=== PATIENT | female | born 1960 | race Caucasian/White ===

== ENCOUNTER 2018-11-02 08:38 | Emergency (ER) | payer OTHER ==
[~2018-11-02] VITALS: Ht 157.5 cm; Wt 83.9 kg
[~2018-11-02 08:38] MED LIST: SYN.025 PO
[2018-11-02 08:44] VITALS: BP 138/93
--- NOTE | 2018-11-02 08:53 | NUR ---
PATIENT AMBULATED TO BED 3.
[2018-11-02] MEDS ORDERED: DEXAMETHASONE 10 MG/ML VIAL IM ONE (09:00)
[2018-11-02] MEDS ORDERED: KETOROLAC 60 MG/2 ML VIAL IM ONE (09:00)
--- NOTE | 2018-11-02 09:02 | NUR ---
PT TAKEN TO CT SCAN VIA AIYANA
--- NOTE | 2018-11-02 09:13 | NUR ---
pt back from ct scan.
[2018-11-02] MEDS ORDERED: MORPHINE SULFATE 4 MG/ML SYR IM ONE (10:35)
[2018-11-02 11:03] VITALS: BP 137/86
--- NOTE | 2018-11-02 11:03 | NUR ---
Patient discharged with v/s stable. Written and verbal after care instructions given and explained. Patient alert, oriented and verbalized understanding of instructions. Ambulatory with steady gait. All questions addressed prior to discharge. ID band removed. Patient advised to follow up with PMD. Rx of Vistaril and Baclofen given. Patient educated on indication of medication including possible reaction and side effects. Opportunity to ask questions provided and answered.
== END 2018-11-02 11:03 | disposition home or self-care (01) ==
LOC: MED 08:38
DX: M43.6 Torticollis (principal); I10 Essential (primary) hypertension; E03.9 Hypothyroidism, unspecified; F41.9 Anxiety disorder, unspecified; F32.9 Major depressive disorder, single episode, unspecified; Z79.899 Other long term (current) drug therapy
CPT/HCPCS: 70450; 72125; 96372; 99284; J1100; J1885; J2270

== ENCOUNTER 2019-10-26 19:18 | Emergency (ER) | payer OTHER ==
[~2019-10-26] VITALS: Ht 144.8 cm; Wt 82.6 kg
[2019-10-26 19:20] VITALS: BP 95/65
--- NOTE | 2019-10-26 19:25 | NUR ---
PT AMBULATED TO BED #5.
--- NOTE | 2019-10-26 19:30 | NUR ---
58 YO F BIB SELF FOR C/C OF 810 NON RADIATING EPIGASTRIC PAIN. PT STATES HER PAIN BEGAN YESTERDAY IN THE MORNING AND HAS BEEN UNRELIEVED WITH ADVIL. PT STATES SHE HAS HAD NAUSEA WITH VOMITING X1 YESTERDAY. LBM WAS TODAY, SOFT AND FORMED. PT DENIES DIARRHEA, AND DENIES APPETITE CHANGES. PT STATES THAT THE PAIN INCREASES UPON INSPIRATION. S1 S2 HEARD, LUNG SOUNDS CLEAR THROUGHOUT. BOWEL SOUNDS NORMOACTIVE THROUGHOUT. PT PLACED ON CARDIOVASCULAR LAB DIRECTOR. SIDE RAILS X1. BED LOCKED AND IN LOWEST POSITION. NKA MED HX: HTN, HYPERLIPID, THYROID (UNABLE TO IDENTIFY IF HYPO OR HYPER) RX: RX FOR THYROID, AND HYPERLIPID (UNABLE TO IDENTIFY MEDS)
--- NOTE | 2019-10-26 19:35 | NUR ---
Dr. Neves examining patient.
[2019-10-26] MEDS ORDERED: ONDANSETRON 4 MG/2 ML VIAL IVP ONE (19:40)
[2019-10-26] MEDS ORDERED: KETOROLAC 30 MG/ML VIAL IVP ONE (19:40)
[2019-10-26] MEDS ORDERED: NACL 0.9% 500 ML IV ONE (19:40)
[2019-10-26] MEDS ORDERED: LIDOCAINE VISCOUS 2% 20 ML UDC PO ONE (19:50)
[2019-10-26] MEDS ORDERED: DICYCLOMINE HCL LIQUID 10 MG/5 ML UDC PO ONE (19:50)
[2019-10-26] MEDS ORDERED: ALUMINUM HYD/MAG/SIMETHICONE 30 ML UDC PO ONE (19:50)
[2019-10-26 19:57] LABS: BASOPHILS % (AUTO) 0.4 % (0.0-2.0); EOSINOPHILS # (AUTO) 0.2 K/uL (0-0.4); EOSINOPHILS % (AUTO) 2.2 % (0.0-4.0); HEMATOCRIT 41.5 % (36-48); HEMOGLOBIN 13.7 g/dL (12.0-16.0); LYMPHOCYTES # (AUTO) 2.9 K/uL (2.5-16.5); LYMPHOCYTES % (AUTO) 35.4 % (20.5-51.1); MEAN CORPUSCULAR HEMOGLOBIN 29 pg (27-31); MEAN CORPUSCULAR HGB CONC 33 g/dL (33-37); MEAN CORPUSCULAR VOLUME 86.4 fL (80-94); MONOCYTES # (AUTO) 0.9 K/uL (0.8-1.0); MONOCYTES % (AUTO) 11.4 % (1.7-9.3); NEUTROPHILS # (AUTO) 4.1 K/uL (1.8-7.7); NEUTROPHILS % (AUTO) 50.6 % (42.2-75.2); PLATELET COUNT (AUTO) 202 K/uL (140-450); RED BLOOD CELL COUNT(AUTO) 4.81 MIL/uL (4.20-5.40); RED CELL DISTRIBUTION WIDTH 13.6 % (11.6-13.7); WHITE BLOOD COUNT (AUTO) 8.1 K/uL (4.8-10.8)
--- NOTE | 2019-10-26 20:14 | NUR ---
X-Ray at bedside.
[2019-10-26 20:15] LABS: ALBUMIN 3.9 g/dL (3.4-5.0); CARBON DIOXIDE 27.3 mmol/L (21-32); CREATININE 0.9 mg/dL (0.6-1.3); POTASSIUM 3.3 mmol/L (3.5-5.1); TOTAL BILIRUBIN 0.5 mg/dL (0.0-1.0)
--- NOTE | 2019-10-26 20:33 | NUR ---
PT STATES HER PAIN IS CURRENTLY 7/10 AFTER MECICATION ADMINSTRATION. PT DENIES WANTING MORE PAIN MEDICATION AT THIS TIME.
--- NOTE | 2019-10-26 20:47 | NUR ---
PT IS NOW REQUESTING MORE PAIN MEEICATION FOR UNRELIEVED 11/17 PAIN. KEVD MADE AWARE.
[2019-10-26] MEDS ORDERED: MORPHINE SULFATE 2 MG/ML SYR IVP ONE (20:50)
[2019-10-26 21:00] VITALS: BP 111/58
--- NOTE | 2019-10-26 21:00 | NUR ---
Patient discharged with v/s stable. Written and verbal after care instructions given and explained. Patient alert, oriented and verbalized understanding of instructions. Wheel Chair Assisted with to car. All questions addressed prior to discharge. ID band removed. Patient advised to follow up with PMD. Rx of PROTONIX, TRAMADOL given. Patient educated on indication of medication including possible reaction and side effects. Opportunity to ask questions provided and answered.
== END 2019-10-26 21:00 | disposition home or self-care (01) ==
LOC: MED 19:18
DX: K29.70 Gastritis, unspecified, without bleeding (principal); E03.9 Hypothyroidism, unspecified; I10 Essential (primary) hypertension; R07.9 Chest pain, unspecified; Z79.899 Other long term (current) drug therapy; Z83.42 Family history of familial hypercholesterolemia
CPT/HCPCS: 36415; 71045; 80053; 83690; 84484; 85025; 93005; 96374; 96375; 99285; J1885; J2270; J2405; J7030; Q0092

== ENCOUNTER 2020-06-12 14:49 | Inpatient (IN) | payer OTHER, SELFPAY ==
[~2020-06-12] VITALS: Ht 154.9 cm; Wt 85.8 kg
[2020-06-12 14:56] VITALS: BP 96/76
--- NOTE | 2020-06-12 15:06 | NUR ---
PATIENT AMBULATED TO BED 3.
--- NOTE | 2020-06-12 15:15 | NUR ---
Note undone in EDM - 06/12/20 at 1811 by FELIPE 59 Y/O F COMING IN FROM HOME WITH C/C PALPITATIONS. PT PRESENTS A&OX4 AND STATES THAT SHE FELT HER HEART BEATING FAST ON THE RIGHT SIDE OF HER CHEST 10 MINUTES PRIOR TO ER ARRIVAL. PT STATES ASSOCIATED HEADACHE. PT DENIES CHEST PAIN, SHORTNESS OF BREATH, ABDOMINAL PAIN, DIZZINESS, BLURRY VISION. PT PLACED ONTO REGIONAL FACILITIES SPECIALIST SHOWING TACHYCARDIA AT 138, BP 84/55, SP02 99% ON ROOM AIR, RR 18. BED LOCKED IN LOWEST POSITION, SIDE RAILS X 1. PMH: HYPERTHYROIDISM MEDS: UNABLE TO OBTAIN NKA
--- NOTE | 2020-06-12 15:15 | NUR ---
59 Y/O F COMING IN FROM HOME WITH C/C PALPITATIONS. PT PRESENTS A&OX4 AND STATES THAT SHE FELT HER HEART BEATING FAST ON THE RIGHT SIDE OF HER CHEST 10 MINUTES PRIOR TO ER ARRIVAL. PT STATES ASSOCIATED HEADACHE. PT DENIES CHEST PAIN, SHORTNESS OF BREATH, ABDOMINAL PAIN, DIZZINESS, BLURRY VISION. PT PLACED ONTO MOLD CONSTRUCTION SUPERVISOR SHOWING TACHYCARDIA AT 138, BP 84/55, SP02 99% ON ROOM AIR, RR 18. BED LOCKED IN LOWEST POSITION, SIDE RAILS X 1. IV ESTABLISHED WITH GOOD BLOOD RETURN. PMH: HYPOTHYROIDISM MEDS: UNABLE TO OBTAIN NKA
--- NOTE | 2020-06-12 16:30 | NUR ---
PT IN POSITION OF COMFORT, ALL PT NEEDS MET AT THIS TIME. CARDIAC MONTIOR IN PLACE, BED LOCKED IN LOWEST POSITION, SIDE RAILS X 1, CALL LIGHT IN REACH.
[2020-06-12] MEDS ORDERED: NACL 0.9% 1,000 ML IV SCH (16:40)
--- NOTE | 2020-06-12 16:47 | NUR ---
LAB AT BEDSIDE
--- NOTE | 2020-06-12 16:47 | NUR ---
XRAY AT BEDSIDE
--- NOTE | 2020-06-12 16:50 | NUR ---
DR. LOCKE EVALUATING PATIENT AT BEDSIDE
[2020-06-12 16:58] LABS: BASOPHILS % (AUTO) 0.2 % (0.0-2.0); EOSINOPHILS # (AUTO) 0.2 K/uL (0-0.4); EOSINOPHILS % (AUTO) 2.2 % (0.0-4.0); HEMOGLOBIN 12.2 g/dL (12.0-16.0); LYMPHOCYTES # (AUTO) 3.5 K/uL (2.5-16.5); LYMPHOCYTES % (AUTO) 44.7 % (20.5-51.1); MEAN CORPUSCULAR HEMOGLOBIN 29 pg (27-31); MEAN CORPUSCULAR HGB CONC 33 g/dL (33-37); MEAN CORPUSCULAR VOLUME 86.5 fL (80-94); MONOCYTES # (AUTO) 0.7 K/uL (0.8-1.0); MONOCYTES % (AUTO) 9.4 % (1.7-9.3); NEUTROPHILS # (AUTO) 3.4 K/uL (1.8-7.7); NEUTROPHILS % (AUTO) 43.5 % (42.2-75.2); PLATELET COUNT (AUTO) 197 K/uL (140-450); RED BLOOD CELL COUNT(AUTO) 4.28 MIL/uL (4.20-5.40); WHITE BLOOD COUNT (AUTO) 7.8 K/uL (4.8-10.8)
[2020-06-12 17:15] LABS: PROTHROMBIN TIME 9.9 secs (10.8-13.4)
[2020-06-12 17:16] LABS: ALBUMIN 3.7 g/dL (3.4-5.0); ANION GAP 12.6 (8-16); CARBON DIOXIDE 25.2 mmol/L (21-32); TOTAL BILIRUBIN 0.1 mg/dL (0.0-1.0)
[2020-06-12 17:26] LABS: POTASSIUM 2.8 mmol/L (3.5-5.1)
--- NOTE | 2020-06-12 17:28 | NUR ---
Potassium 2.8--critical value received from lab. Dr Perry made aware.
[2020-06-12] MEDS ORDERED: POTASSIUM CHLORIDE 10 MEQ TABER PO ONE (17:30)
[2020-06-12] MEDS ORDERED: ACETAMINOPHEN EXTRA STRENGTH 500 MG TAB PO ONE (17:30)
--- NOTE | 2020-06-12 17:30 | NUR ---
PT IN POSITION OF COMFORT, ALL PT NEEDS MET AT THIS TIME. EQUAL CHEST RISE AND FALL. RESPIRATIONS EVEN/UNLABORED. CARDIAC MONTIOR IN PLACE, BED LOCKED IN LOWEST POSITION, SIDE RAILS X 1, CALL LIGHT IN REACH.
[2020-06-12 17:55] LABS: FREE T4 (FREE THYROXINE) 0.71 ng/dL (0.76-1.46); MAGNESIUM 1.7 mg/dL (1.8-2.4); THYROID STIMULATING HORMONE 3.13 uIU/mL (0.34-3.74)
--- NOTE | 2020-06-12 18:16 | NUR ---
ALL PT NEEDS MET AT THIS TIME. CARDIAC MONTIOR IN PLACE. EQUAL CHEST RISE AND FALL, RESPIRATIONS EVEN/UNLABORED. BED LOCKED IN LOWEST POSITION, SIDE RAILS X 1, CALL LIGHT IN REACH.
--- NOTE | 2020-06-12 18:34 | NUR ---
DR. VIVAS PLACED ORDER FOR MAGNESIUM TO RUN 25ML OVER 1 HR AND DISCONTINUE AFTER 25ML. READ BACK AND CONFIRMED WITH .
[2020-06-12] MEDS ORDERED: MAG SULF 2000 MG/WATER PREMIX 50 ML IV ONE (18:40)
--- NOTE | 2020-06-12 19:36 | NUR ---
REPORT AND CONTINUITY OF CARE GIVEN TO EVA MOHR.
--- NOTE | 2020-06-12 19:36 | NUR ---
RECEIVED REPORT FROM PRETTY RN FOR CONTUATION OF CARE. PT IS SITTING UPRIGHT IN SEMI FOWLERS POSITION FOR COMFORT, PT IS ON HER PHONE, NO ACUTE DISTRES NOTED, BED IS LOCKED AND IN LOWEST POSITION, SIDE RAILSX1, PT HAS MAGNESIUM RUNNING AT 25ML/HR, PER NEPTALI CROWLEY ORDER IS ONLY FOR HALF DOSE AND ORDER IS TO ONLY RUN 25 ML NOT THE ENTIRE 50 ML BAG.
--- NOTE | 2020-06-12 20:03 | NUR ---
EKG PERFORMED AT BEDSIDE. EKG READS SINUS RHYTHM @ 85
--- NOTE | 2020-06-12 20:36 | NUR ---
PT IS SITTING UPRIGHT IN SEMI FOWLERS POSITION FOR COMFORT, NO ACUTE DISTRES NOTED, BED IS LOCKED AND IN LOWEST POSITION, SIDE RAILSX1, CALL LIGHT WITHIN REACH.
[2020-06-12] MEDS ORDERED: NACL 0.9% 1,000 ML IV ONE (21:00)
--- NOTE | 2020-06-12 21:00 | NUR ---
PTS BP IS 79/53, ERMD MADE AWARE, ERMD ORDERED NS BOLUS PRIOR TO DISCHARGE. PT IS NOT C/O OF NEW ONSET DIZZINESS OR LETHARGY
--- NOTE | 2020-06-12 21:10 | NUR ---
SPOKE WITH SON DELIA HARRIS WHO IS HERE IN THE LOBBY TO APPEALS BOARD REFEREE THE PT AND DRIVE HER HOME. SON UPDATED ON PTS STATUS AND NOTIFIED OF NEW ONSET HYPOTENSION- SON LEFT HIS NUMBER [phone]. WILL CALL HIM WHEN PT IS READY FOR DISCHARGE
--- NOTE | 2020-06-12 21:19 | NUR ---
PT IS SITTING UPRIGHT IN SEMI FOWLERS POSITION FOR COMFORT AND CONNECTED TO THE FREELANCE ART DIRECTOR, NO ACUTE DISTRES NOTED, NS IS RUNNING AT 1000ML/HR PER NEPTALI CROWLEY. BED IS LOCKED AND IN LOWEST POSITION, SIDE RAILSX1, CALL LIGHT WITHIN REACH.
--- NOTE | 2020-06-12 21:33 | NUR ---
NS BOLUS IS STILL INFUSING AT THIS TIME.
--- NOTE | 2020-06-12 22:20 | NUR ---
PT IS AMBULATED TO ED RESTROOM WITH STEADY GAIT
--- NOTE | 2020-06-12 22:30 | NUR ---
pt ambulated back to restroom with steady gait and reconnected to the cardiac cath rn.
--- NOTE | 2020-06-12 22:45 | NUR ---
PT IS RESTING IN AN UPRIGHT IN SEMI FOWLERS POSITION FOR COMFORT, VISIBLE RISE AND FALL OF CHEST NOTED. NO ACUTE DISTRES NOTED, BED IS LOCKED AND IN LOWEST POSITION, SIDE RAILSX1, CALL LIGHT WITHIN REACH. NO NEW ORDERS AT THIS TIME.
--- NOTE | 2020-06-12 23:09 | NUR ---
PTS BP OF 86/52, NEPTALI CROWLEY MADE AWARE, DISCUSSED ADMISSION WITH PT FOR HYPOTENSION
--- NOTE | 2020-06-12 23:20 | NUR ---
PTS SON NOTIFIED OF POSSIBLE ADMISSION AND UPDATE IN PT STATUS AT THIS TIME.
--- NOTE | 2020-06-12 23:53 | NUR ---
pt taken to ct at this time
[2020-06-13] MEDS ORDERED: LORazepam 1 MG TAB PO PRN (00:05)
[2020-06-13] MEDS ORDERED: POTASSIUM CHLORIDE 10 MEQ TABER PO PRN (00:05)
[2020-06-13] MEDS ORDERED: HYDROcodone/APAP 5/325 MG 1 TAB TAB PO PRN (00:05)
[2020-06-13] MEDS ORDERED: KCL 20 MEQ/WATER INJ PREMIX 200 ML IV PRN (00:05)
[2020-06-13] MEDS ORDERED: MAG SULF 2000 MG/WATER PREMIX 50 ML IV PRN (00:05)
[2020-06-13] MEDS ORDERED: ONDANSETRON 4 MG/2 ML VIAL IVP PRN (00:05)
[2020-06-13] MEDS ORDERED: ACETAMINOPHEN 325 MG TAB PO PRN (00:05)
[2020-06-13] MEDS ORDERED: NACL 0.9% 1,000 ML IV ONE (00:05)
[2020-06-13] MEDS ORDERED: MAGNESIUM OXIDE 400 MG TAB PO PRN (00:05)
--- NOTE | 2020-06-13 00:30 | NUR ---
PT IS ASLEEP IN UPRIGHT IN SEMI FOWLERS POSITION FOR COMFORT, VISIBLE RISE AND FALL OF CHEST NOTED AND CONNECTED TO THE MANAGER PLUMBING, NO ACUTE DISTRES NOTED. BED IS LOCKED AND IN LOWEST POSITION, SIDE RAILSX1, CALL LIGHT WITHIN REACH.
--- NOTE | 2020-06-13 00:30 | NUR ---
Gurjit portillo in [facility] - 06/13/20 at 0033 by BETOReese CALLED AND GAVE REPORT TO EVA ORLANDO FOR TRANSFER OF CARE IN TELEMETRY
--- NOTE | 2020-06-13 01:30 | NUR ---
PT IS SLEEP IN LOW FOWLERS POSITION FOR COMFORT, VISIBLE RISE AND FALL OF CHEST NOTED AND CONNECTED TO THE PAINT MIXER HAND, NO ACUTE DISTRES NOTED. BED IS LOCKED AND IN LOWEST POSITION, SIDE RAILSX1, CALL LIGHT WITHIN REACH.
--- NOTE | 2020-06-13 02:30 | NUR ---
PT IS SLEEP IN LOW FOWLERS POSITION FOR COMFORT, VISIBLE RISE AND FALL OF CHEST NOTED AND CONNECTED TO THE ARCHITECTURAL ADMINISTRATIVE ASSISTANT, NO ACUTE DISTRES NOTED. BED IS LOCKED AND IN LOWEST POSITION, SIDE RAILSX1, CALL LIGHT WITHIN REACH. NO NEW ORDERS AT THIS TIME.
--- NOTE | 2020-06-13 03:30 | NUR ---
PT IS SLEEPING IN LOW FOWLERS POSITION FOR COMFORT, VISIBLE RISE AND FALL OF CHEST NOTED AND CONNECTED TO THE WEAVER TIRE CORD, NO ACUTE DISTRES NOTED. BED IS LOCKED AND IN LOWEST POSITION, SIDE RAILSX1, CALL LIGHT WITHIN REACH. NO NEW ORDERS AT THIS TIME.
--- NOTE | 2020-06-13 04:30 | NUR ---
PT IS SLEEPING IN LOW FOWLERS POSITION FOR COMFORT, VISIBLE RISE AND FALL OF CHEST NOTED AND CONNECTED TO THE MECHANIST, NO ACUTE DISTRES NOTED. BED IS LOCKED AND IN LOWEST POSITION, SIDE RAILSX1, CALL LIGHT WITHIN REACH. NO NEW ORDERS AT THIS TIME.
--- NOTE | 2020-06-13 05:30 | NUR ---
PT IS SLEEPING IN LOW FOWLERS POSITION FOR COMFORT, VISIBLE RISE AND FALL OF CHEST NOTED AND CONNECTED TO THE GEOSPATIAL EXTRACTOR ANALYSIS, NO ACUTE DISTRES NOTED. BED IS LOCKED AND IN LOWEST POSITION, SIDE RAILSX1, CALL LIGHT WITHIN REACH. NO NEW ORDERS AT THIS TIME.
--- NOTE | 2020-06-13 05:55 | NUR ---
CALLED AND GAVE REPORT TO EVA MAN FOR TRANSFER OF CARE AT THIS TIME.
--- NOTE | 2020-06-13 06:10 | NUR ---
Patient will be admitted to care of . Admited to TELEMETRY. Will go to room 133. Belongings list completed. Report to EVA MAN.
[2020-06-13 06:15] VITALS: BP 128/68
--- NOTE | 2020-06-13 06:15 | NUR ---
RECEIVED PATIENT FROM ER VIA [facility] FOR CONTINUITY OF CARE. PATIENT IS ABLE TO AMBULATE FROM [facility] TO BED. AAOX4. RESPIRATIONS EVEN, UNLABORED. NO S/S RESPIRATORY DISTRESS. NO C/O PAIN. NO S/S ACUTE DISTRESS. SKIN ASSESSMENT COMPLETE. SKIN INTACT. IV SITE TO RIGHT AC 20G PATENT/INTACT, INFUSING FLUIDS WELL. ABDOMEN SOFT, NONTENDER, NONDISTENDED. BOWEL SOUNDS ACTIVE X4 QUADRANTS. PATIENT IS CONTINENT OF B/B. MRSA SCREEN COMPLETED. PATIENT ORIENTED TO ROOM/STAFF AND CALL LIGHT. PLAN OF CARE DISCUSSED. ISOLATION PRECAUTIONS OBSERVED.
[2020-06-13] MEDS: methylPREDNISolone SS 40 MG/ML VIAL IVP SCH ×4 (06:25→23:38)
[2020-06-13] MEDS: LEVOTHYROXINE 0.025 MG TAB PO SCH (06:31)
[2020-06-13] MEDS ORDERED: MIDODRINE 5 MG TAB PO SCH (07:00)
--- NOTE | 2020-06-13 07:25 | NUR ---
ENDORSED PATIENT TO AM SHIFT NURSE FOR CONTINUITY OF CARE.
--- NOTE | 2020-06-13 07:40 | NUR ---
RECEIVED PT FROM COMPOUNDING TECHNICIAN NURSE, PT IS AWAKE AND ALERT IN BED, ON ROOM AIR, IV NOTED TO RAC RUNNING NS @ 75 ML/HR, SAFETY AND FALL PRECAUTIONS IN PLACE, WILL CONTINUE TO MONITOR.
[2020-06-13] MEDS: DOCUSATE SODIUM 100 MG GELCAP PO SCH (09:05)
[2020-06-13] MEDS: MIDODRINE 5 MG TAB PO SCH ×3 (09:05→18:15)
--- NOTE | 2020-06-13 09:16 | NUR ---
SCHEDULED MEDICATIONS ADMINISTERED, NIGHT NURSE STATED MIDODRINE WAS HELD, TEOFILO BP 106/70, MIDODRINE ADMINISTERED AND SCHEDULED COLACE ADMINISTERED, PT EDUCATION PROVIDED, PT VERBALIZED UNDERSTANDING,WILL CONTINUE TO MONITOR.
[2020-06-13 12:00] VITALS: BP 94/57
--- NOTE | 2020-06-13 12:06 | NUR ---
P.T. NOTES P.T. EVAL COMPLETED; REFER TO EVAL FOR DETAILS; ENDORSED TO NURSING.
--- NOTE | 2020-06-13 13:09 | NUR ---
SCHEDULED MEDICATION ADMINISTERED, EDUCATION PROVIDED, BP 118/83, HR 89, PT VERBALIZED UNDERSTANDING, WILL CONTINUE TO MONITOR.
--- NOTE | 2020-06-13 15:21 | NUR ---
SOCIAL WORK NOTE: Patient's Orientation Unable To Assess Information Provided By DELIA HARRIS - SON Comments SW WAS UNABLE TO MEET PATIENT AT BEDSIDE. SW COMPLETED ASSESSMENT WITH PATIENT'S SON. Solution Analyst, Realtionship and Phone Number DELIA GASPAR [phone] Healthcare Power of Regional Safety Manager No Does Patient Have a POLST No Identifying Problems No Social Work Triggers Is A Social Work Consult Needed No Mandate Report Filed No Explanation Of Identifying Problems PATIENT IS A 59-YEAR-OLD FEMALE ADMITTED FOR HYPOTENSION WITH WEAKNESS. PATIENT HAS NO REPORTED PMHX. Admitted From Home Pre-Admission Level Of Functioning Status Independent/Ambulatory Prior Resources/Services Used In Last 12 Months No Prior Resources Used Prior DME No Prior DME Used Dialysis Comments N/A Living Situation Lives With Family House Patient Had Caregiver No Home Support No Caregiver Issues Financial Issues No Known Financial Issue Referral To The Financial Counselor Needed No Factors/Needs No D/C Needs Identified Pt/Rep Participated In Discharge Plan Yes Patient/Family Agress With Discharge Plan Yes Discharge Plan Comments TENTATIVE DISCHARGE PLAN IS FOR PATIENT TO RETURN HOME. DC Plan Status Initiated
[2020-06-13 16:00] VITALS: BP 101/64
--- NOTE | 2020-06-13 17:31 | NUR ---
SCHEDULED MEDICATION ADMINISTERED, RECHECKED BP, 101/64, EDUCATION PROVIDED, PT VERBALIZED UNDERSTANDING, WILL CONTINUE TO MONITOR.
[2020-06-13 17:58] LABS: BASOPHILS % (AUTO) 0.1 % (0.0-2.0); HEMATOCRIT 40.2 % (36-48); HEMOGLOBIN 13.5 g/dL (12.0-16.0); LYMPHOCYTES # (AUTO) 0.9 K/uL (2.5-16.5); MEAN CORPUSCULAR HEMOGLOBIN 29 pg (27-31); MEAN CORPUSCULAR HGB CONC 34 g/dL (33-37); MEAN CORPUSCULAR VOLUME 86.2 fL (80-94); MONOCYTES # (AUTO) 0.1 K/uL (0.8-1.0); MONOCYTES % (AUTO) 1.4 % (1.7-9.3); NEUTROPHILS # (AUTO) 5.9 K/uL (1.8-7.7); NEUTROPHILS % (AUTO) 85.5 % (42.2-75.2); PLATELET COUNT (AUTO) 216 K/uL (140-450); RED BLOOD CELL COUNT(AUTO) 4.66 MIL/uL (4.20-5.40); RED CELL DISTRIBUTION WIDTH 13.9 % (11.6-13.7); WHITE BLOOD COUNT (AUTO) 6.9 K/uL (4.8-10.8)
[2020-06-13 18:19] LABS: ALBUMIN 3.7 g/dL (3.4-5.0); ANION GAP 14.4 (8-16); CARBON DIOXIDE 24.7 mmol/L (21-32); POTASSIUM 4.1 mmol/L (3.5-5.1); TOTAL BILIRUBIN 0.3 mg/dL (0.0-1.0)
--- NOTE | 2020-06-13 18:33 | NUR ---
SCHEDULED MEDICATION ADMINISTERED WITH MAGNESIUM FOR 1.7 MG LEVEL, EDUCATION PROVIDED, PT VERBALIZED UNDERSTANDING, WILL CONTINUE TO MONITOR.
--- NOTE | 2020-06-13 19:25 | NUR ---
PT ENDORSED TO SURVEILLANCE INSPECTOR NURSE FOR CONTINUITY OF CARE.
--- NOTE | 2020-06-13 19:25 | NUR ---
RECEIVED BEDSIDE REPORT FROM DAY SHIFT NURSE. PATIENT IS AWAKE, ALERT, AND COOPERATIVE. RESPIRATION EVEN UNLABORED ON ROOM AIR. NO DISTRESS NOTED. SKIN IS WARM AND DRY. IV PATENT AND INTACT. PLAN OF CARE WAS DISCUSSED. ALL SAFETY MEASURES IN PLACE. BED IS AT LOW POSITION. CALL LIGHT WITHIN REACH. WILL CONTINUE TO MONITOR
[2020-06-13 20:00] VITALS: BP 107/51
--- NOTE | 2020-06-13 21:00 | NUR ---
MADE ROUNDS. PATIENT SLEEPING RESPIRATION EVEN UNLABORED ON ROOM AIR. NO DISTRESS NOTED. WILL CONTINUE TO MONITOR
--- NOTE | 2020-06-13 23:40 | NUR ---
ALL SCHEDULED MEDS GIVEN PER ORDER. NO ASE NOTED. WILL CONTINUE TO MONITOR
[2020-06-14] VITALS: BP 97/49
--- NOTE | 2020-06-14 02:20 | NUR ---
ENDORSED PATIENT TO DEVON RN FOR CONTINUITY OF CARE
--- NOTE | 2020-06-14 03:35 | NUR ---
Patient received at 0210 from fellow nurse. Patient is currently sleeping with 0 s/s of distress and breathing is even and unlabored. Call light is within reach. Will continue to monitor throughout the shift.
[2020-06-14 04:00] VITALS: BP 104/62
[2020-06-14] MEDS: methylPREDNISolone SS 40 MG/ML VIAL IVP SCH ×2 (05:34→12:18)
[2020-06-14] MEDS: MIDODRINE 5 MG TAB PO SCH ×2 (05:34→12:31)
[2020-06-14] MEDS: LEVOTHYROXINE 0.025 MG TAB PO SCH (05:35)
--- NOTE | 2020-06-14 06:28 | NUR ---
Patient is alert and able to verbalize needs and has 0 s/s of distress at this time, breathing is equal and unlabored. Call light is within reach. All scheduled medications and schedule interventions were completed through the shift. Will endorse further care to am shift nurse for continuity of care.
--- NOTE | 2020-06-14 07:37 | NUR ---
RECEIVED REPORT FROM GRAPHICS SPECIALIST NURSE FOR CONTINUITY OF CARE. PATIENT IN STABLE CONDITION.
[2020-06-14 08:00] VITALS: BP 135/85
[2020-06-14] MEDS: DOCUSATE SODIUM 100 MG GELCAP PO SCH (08:43)
--- NOTE | 2020-06-14 08:57 | NUR ---
SCHEDULED MEDICATIONS DUE GIVEN. WILL CONTINUE TO MONITOR.
--- NOTE | 2020-06-14 09:05 | NUR ---
PATIENT HAS BEEN SCREENED AND CATEGORIZED LOW NUTRITION RISK. PATIENT WILL BE SEEN WITHIN 7 DAYS OF ADMISSION. 06/19/[address]
[2020-06-14 09:15] LABS: BASOPHILS % (AUTO) 0.1 % (0.0-2.0); HEMATOCRIT 39.8 % (36-48); HEMOGLOBIN 13.2 g/dL (12.0-16.0); LYMPHOCYTES # (AUTO) 1.2 K/uL (2.5-16.5); LYMPHOCYTES % (AUTO) 9.9 % (20.5-51.1); MEAN CORPUSCULAR HEMOGLOBIN 29 pg (27-31); MEAN CORPUSCULAR HGB CONC 33 g/dL (33-37); MEAN CORPUSCULAR VOLUME 86.8 fL (80-94); MONOCYTES # (AUTO) 0.5 K/uL (0.8-1.0); MONOCYTES % (AUTO) 4.5 % (1.7-9.3); NEUTROPHILS # (AUTO) 10.1 K/uL (1.8-7.7); NEUTROPHILS % (AUTO) 85.5 % (42.2-75.2); PLATELET COUNT (AUTO) 204 K/uL (140-450); RED BLOOD CELL COUNT(AUTO) 4.59 MIL/uL (4.20-5.40); RED CELL DISTRIBUTION WIDTH 14.1 % (11.6-13.7); WHITE BLOOD COUNT (AUTO) 11.8 K/uL (4.8-10.8)
[2020-06-14 09:48] LABS: ALBUMIN 3.7 g/dL (3.4-5.0); ANION GAP 13.2 (8-16); CHOL/HDL RATIO 4.5 (1-4.5); CREATININE 0.8 mg/dL (0.6-1.3); MAGNESIUM 2.1 mg/dL (1.8-2.4); PHOSPHORUS 3.3 mg/dL (2.5-4.9); POTASSIUM 4.2 mmol/L (3.5-5.1); TOTAL BILIRUBIN 0.3 mg/dL (0.0-1.0)
[2020-06-14] MEDS ORDERED: PRO5 PO (10:52)
[2020-06-14 12:00] VITALS: BP 115/74
--- NOTE | 2020-06-14 12:31 | NUR ---
SCHEDULED MEDICATIONS DUE GIVEN. WILL CONTINUE TO MONITOR.
--- NOTE | 2020-06-14 14:23 | NUR ---
DISCHARGE INSTRUCTIONS PROVIDED TO PATIENT WITH SON ON PHONE TRANSLATING IN [facility] PATIENT PREFERS. INSTRUCTIONS ON FOLLOW-UP WITH PCP IN 1 WEEK, NEW/CHANGED MEDICATION REGIMEN AND SIDE EFFECTS, DIET REGIMEN, AND DISEASE MANAGEMENT/PROCESS OF HYPOTENSION. ANSWERED ALL OF PATIENT'S QUESTIONS REGARDING DISCHARGE. IV SITE REMOVED WITH MINIMAL BLOOD AND LUMEN COMPLETELY INTACT. ID BANDS REMOVED. AWAITING FOR PATIENT'S SON TO ARRIVE TO TAKE HER HOME.
--- NOTE | 2020-06-14 14:35 | NUR ---
PATIENT'S SON AT LOBBY TO TAKE PATIENT HOME. ESCORTED PATIENT DOWN TO [facility] VIA WHEELCHAIR. PATIENT DISCHARGED AT THIS TIME IN STABLE CONDITION.
== END 2020-06-14 14:35 | disposition home or self-care (01) | DRG 207 ==
LOC: MED 14:49 → MTU 06-13 00:04 → MMU 06-13 05:44
PROVIDERS: ADMIT Internal Medicine; ATTEND Internal Medicine
DX: I95.9 Hypotension, unspecified (principal); E83.42 Hypomagnesemia; I11.9 Hypertensive heart disease without heart failure; Z20.822 Contact with and (suspected) exposure to COVID-19; E03.9 Hypothyroidism, unspecified; E78.00 Pure hypercholesterolemia, unspecified; E87.6 Hypokalemia; Z79.899 Other long term (current) drug therapy; Z86.718 Personal history of other venous thrombosis and embolism; Z86.711 Personal history of pulmonary embolism; R00.0 Tachycardia, unspecified; E78.5 Hyperlipidemia, unspecified
CPT/HCPCS: 36415; 71045; 80053; 83036; 83735; 83880; 84100; 84439; 84443; 84484; 85025; 85610; 85730; 86140; 87081; 93005; 96361; 96365; 99285; J2920; J3475; J7030; U0003

== ENCOUNTER 2020-12-02 21:53 | Emergency (ER) | payer OTHER, SELFPAY ==
[~2020-12-02] VITALS: Ht 162.6 cm; Wt 81.6 kg
[~2020-12-02 21:53] MED LIST changes: +PRO5 PO
[2020-12-02 22:00] VITALS: BP 122/56
--- NOTE | 2020-12-02 22:00 | NUR ---
TO BED AMBULATORY
--- NOTE | 2020-12-02 22:16 | NUR ---
patient pain in the RLQ which radiates to the back. 02/17 pain. patient was here in march 2020 for appendicitis but never went through with the operation since she wasnt in any pain. AAOX4. [facility] denies nka
[2020-12-02] MEDS ORDERED: NACL 0.9% 1,000 ML IV ONE ×2 (22:40)
[2020-12-02] MEDS ORDERED: PIPERACILLIN/TAZOBACTAM 3.375 GM in DEXTROSE 5% 50 ML IV ONE (22:40)
[2020-12-02] MEDS ORDERED: MORPHINE SULFATE 4 MG/ML SYR IVP ONE (22:40)
[2020-12-02] MEDS ORDERED: ONDANSETRON 4 MG/2 ML VIAL IVP ONE (22:40)
[2020-12-02] MEDS ORDERED: PIPERACILLIN/TAZOBACTAM 3.375 GM VIAL IV ONE (23:04)
[2020-12-02 23:11] LABS: BASOPHILS % (AUTO) 0.5 % (0.0-2.0); EOSINOPHILS # (AUTO) 0.2 K/uL (0-0.4); EOSINOPHILS % (AUTO) 3.5 % (0.0-4.0); HEMATOCRIT 38.1 % (36-48); HEMOGLOBIN 12.7 g/dL (12.0-16.0); LYMPHOCYTES # (AUTO) 2.7 K/uL (2.5-16.5); LYMPHOCYTES % (AUTO) 41.9 % (20.5-51.1); MEAN CORPUSCULAR HEMOGLOBIN 29 pg (27-31); MEAN CORPUSCULAR HGB CONC 33 g/dL (33-37); MEAN CORPUSCULAR VOLUME 87.3 fL (80-94); MONOCYTES # (AUTO) 0.7 K/uL (0.8-1.0); MONOCYTES % (AUTO) 11.1 % (1.7-9.3); NEUTROPHILS # (AUTO) 2.7 K/uL (1.8-7.7); PLATELET COUNT (AUTO) 192 K/uL (140-450); RED BLOOD CELL COUNT(AUTO) 4.37 MIL/uL (4.20-5.40); RED CELL DISTRIBUTION WIDTH 13.5 % (11.6-13.7); WHITE BLOOD COUNT (AUTO) 6.3 K/uL (4.8-10.8)
--- NOTE | 2020-12-02 23:22 | NUR ---
Dr. Hodges examining patient.
--- NOTE | 2020-12-02 23:24 | NUR ---
patient to CT
[2020-12-02 23:28] LABS: ALBUMIN 3.8 g/dL (3.4-5.0); ANION GAP 9.3 (8-16); CARBON DIOXIDE 29.8 mmol/L (21-32); CREATININE 0.8 mg/dL (0.6-1.3); POTASSIUM 4.1 mmol/L (3.5-5.1); TOTAL BILIRUBIN 0.3 mg/dL (0.0-1.0)
--- NOTE | 2020-12-02 23:45 | NUR ---
patient placed back on the monitors. Will continue with safety measures and monitoring.
[2020-12-03] MEDS ORDERED: AMOX-1000 PO (01:34)
[2020-12-03] MEDS ORDERED: IBUP-2213 PO (01:34)
--- NOTE | 2020-12-03 01:40 | NUR ---
IV removed, catheter intact and site benign. Applied folded 4x4 gauze and tape to stop bleeding.
[2020-12-03 01:51] VITALS: BP 96/71
--- NOTE | 2020-12-03 01:51 | NUR ---
Patient discharged with v/s stable. Written and verbal after care instructions given and explained. Patient alert, oriented and verbalized understanding of instructions. Ambulatory with steady gait. All questions addressed prior to discharge. ID band removed. Patient advised to follow up with PMD. Rx of augmentin 875-125, and ibuprofen given. Patient educated on indication of medication including possible reaction and side effects. Opportunity to ask questions provided and answered.
--- NOTE | 2020-12-05 20:35 | NUR ---
LATE NOTE- 0.9% NS BOLUS DISCONTINUED AT 0145
== END 2020-12-03 01:51 | disposition home or self-care (01) ==
LOC: MED 21:53
DX: K65.4 Sclerosing mesenteritis (principal); E11.9 Type 2 diabetes mellitus without complications; K21.9 Gastro-esophageal reflux disease without esophagitis; E03.9 Hypothyroidism, unspecified; Z98.890 Other specified postprocedural states; Z79.899 Other long term (current) drug therapy
CPT/HCPCS: 36415; 74176; 80053; 81002; 83605; 85025; 87040; 96361; 96365; 96375; 99284; J2270; J2405; J2543; J7030

== ENCOUNTER 2021-03-24 17:23 | Emergency (ER) | payer OTHER, SELFPAY ==
[~2021-03-24] VITALS: Ht 152.4 cm; Wt 82.6 kg
[~2021-03-24 17:23] MED LIST changes: +AMOX-1000 PO; +IBUP-2213 PO
[2021-03-24 17:48] VITALS: BP 124/70
--- NOTE | 2021-03-24 17:53 | NUR ---
MAGALYS. HANDED ON URINE CUP.
[2021-03-24 19:48] LABS: BASOPHILS % (AUTO) 0.4 % (0.0-2.0); EOSINOPHILS # (AUTO) 0.2 K/uL (0-0.4); EOSINOPHILS % (AUTO) 3.3 % (0.0-4.0); HEMATOCRIT 40.1 % (36-48); HEMOGLOBIN 13.4 g/dL (12.0-16.0); LYMPHOCYTES # (AUTO) 2.4 K/uL (2.5-16.5); LYMPHOCYTES % (AUTO) 36.5 % (20.5-51.1); MEAN CORPUSCULAR HEMOGLOBIN 29 pg (27-31); MEAN CORPUSCULAR HGB CONC 33 g/dL (33-37); MEAN CORPUSCULAR VOLUME 86.3 fL (80-94); MONOCYTES # (AUTO) 0.8 K/uL (0.8-1.0); MONOCYTES % (AUTO) 12.7 % (1.7-9.3); NEUTROPHILS # (AUTO) 3.1 K/uL (1.8-7.7); NEUTROPHILS % (AUTO) 47.1 % (42.2-75.2); PLATELET COUNT (AUTO) 262 K/uL (140-450); RED BLOOD CELL COUNT(AUTO) 4.64 MIL/uL (4.20-5.40); RED CELL DISTRIBUTION WIDTH 13.2 % (11.6-13.7); WHITE BLOOD COUNT (AUTO) 6.6 K/uL (4.8-10.8)
[2021-03-24 19:53] LABS: APPEARANCE,URINE CLEAR (CLEAR); BILIRUBIN,URINE NEGATIVE (NEGATIVE); BLOOD, URINE TRACE-I (NEGATIVE); COLOR,URINE YELLOW (YELLOW); LEUKOCYTE ESTERASE ,URINE NEGATIVE (NEGATIVE); NITRITE, URINE NEGATIVE (NEGATIVE); UGLUCOSE NEGATIVE (NEGATIVE)
[2021-03-24 20:03] LABS: RBC,URINE 0-5 /HPF (0-5); WBC,URINE NONE SEEN /HPF (0-5)
[2021-03-24 20:04] LABS: ANION GAP 11.5 (8-16); CARBON DIOXIDE 31.8 mmol/L (21-32); CREATININE 0.9 mg/dL (0.6-1.3); POTASSIUM 4.3 mmol/L (3.5-5.1); TOTAL BILIRUBIN 0.3 mg/dL (0.0-1.0)
[2021-03-24] MEDS ORDERED: KETOROLAC 30 MG/ML VIAL IM SCH (20:50)
--- NOTE | 2021-03-24 20:56 | NUR ---
PT TAKEN TO ADAM
--- NOTE | 2021-03-24 21:15 | NUR ---
PT TAKEN TO RADIOLOGY
--- NOTE | 2021-03-24 21:24 | NUR ---
PT RETURN FROM RAD
[2021-03-24] MEDS ORDERED: MAGN1.7529 PO (23:05)
[2021-03-24 23:37] VITALS: BP 124/70
--- NOTE | 2021-03-24 23:38 | NUR ---
Patient discharged with v/s stable. Written and verbal after care instructions given and explained. Patient verbalized understanding. Ambulatory with steady gait. All questions addressed prior to discharge. Advised to follow up with PMD.
== END 2021-03-24 23:38 | disposition home or self-care (01) ==
LOC: MED 17:23
DX: K59.00 Constipation, unspecified (principal); E11.9 Type 2 diabetes mellitus without complications; I10 Essential (primary) hypertension; E03.9 Hypothyroidism, unspecified; Z79.899 Other long term (current) drug therapy; Z79.1 Long term (current) use of non-steroidal anti-inflammatories (NSAID); Z79.2 Long term (current) use of antibiotics
CPT/HCPCS: 36415; 74018; 80053; 81001; 81025; 85025; 93005; 99285

== ENCOUNTER 2022-08-26 18:29 | Emergency (ER) | payer OTHER ==
[~2022-08-26] VITALS: Ht 157.5 cm; Wt 83.9 kg
[~2022-08-26 18:29] MED LIST changes: +MAGN296S70 PO
[2022-08-26 18:34] VITALS: BP 114/56
--- NOTE | 2022-08-26 19:45 | NUR ---
PT AMBULATED TO BED #5
--- NOTE | 2022-08-26 20:00 | NUR ---
ER Physician speaking with patient.
--- NOTE | 2022-08-26 20:00 | NUR ---
Patient resting in bed, A/Ox4, chest rise and fall symmetrical, no c/o pain or s/s of distress, on monitor Addendum: 08/26/22 at 1999 by [id number] Patient resting in bed, A/Ox4, chest rise and fall symmetrical, no s/s of distress, on monitor
[2022-08-26] MEDS ORDERED: KETOROLAC 15 MG/ML VIAL IVP ONE (20:10)
[2022-08-26] MEDS ORDERED: diphenhydrAMINE 50 MG/ML VIAL IVP ONE (20:10)
[2022-08-26] MEDS ORDERED: PROCHLORPERAZINE 10 MG/2 ML VIAL IVP ONE (20:10)
--- NOTE | 2022-08-26 22:00 | NUR ---
Patient resting in bed, A/Ox4, chest rise and fall symmetrical, no c/o pain or s/s of distress, on monitor
[2022-08-26] MEDS ORDERED: NAPR-54 PO (22:08)
[2022-08-26 22:15] VITALS: BP 118/85
== END 2022-08-26 22:20 | disposition home or self-care (01) ==
LOC: MED 18:29
DX: R51.9 Headache, unspecified (principal); E11.9 Type 2 diabetes mellitus without complications; I10 Essential (primary) hypertension; E03.9 Hypothyroidism, unspecified; Z79.899 Other long term (current) drug therapy; Z79.1 Long term (current) use of non-steroidal anti-inflammatories (NSAID); Z79.2 Long term (current) use of antibiotics
CPT/HCPCS: 70450; 96374; 96375; 99285; J0780; J1200; J1885

== ENCOUNTER 2023-12-30 11:44 | Emergency (ER) | payer OTHER ==
[~2023-12-30] VITALS: Ht 149.9 cm; Wt 84.1 kg
[~2023-12-30 11:44] MED LIST changes: +NAPR-337 PO
[2023-12-30 11:50] VITALS: BP 99/53; PULSE 71; RESP 18; TEMP 97.8; O2SAT 99
[2023-12-30] MEDS: TETRACAINE HCL/PF 0.5% OPTH 4 ML BTL OP ONE (13:03)
[2023-12-30] MEDS: FLUORESCEIN OPTH STRIP 1 MG OP ONE (13:03)
[2023-12-30] MEDS: PROCHLORPERAZINE 10 MG/2 ML VIAL IM ONE (13:33)
[2023-12-30] MEDS: IBUPROFEN 600 MG TAB PO ONE (13:33)
[2023-12-30] MEDS ORDERED: NAPR-1704 PO (14:25)
[2023-12-30] MEDS ORDERED: PROC-87 PO (14:25)
[2023-12-30 14:42] VITALS: BP 108/62; PULSE 77; RESP 16; TEMP 97.8; O2SAT 99
== END 2023-12-30 14:32 | disposition home or self-care (01) ==
LOC: MED 11:44
DX: G43.909 Migraine, unspecified, not intractable, without status migrainosus (principal); H57.11 Ocular pain, right eye; E11.9 Type 2 diabetes mellitus without complications; I10 Essential (primary) hypertension; E03.9 Hypothyroidism, unspecified; Z79.1 Long term (current) use of non-steroidal anti-inflammatories (NSAID); Z79.899 Other long term (current) drug therapy
CPT/HCPCS: 70450; 96372; 99285; J0780

== ENCOUNTER 2024-01-21 10:58 | Emergency (ER) | payer OTHER ==
[~2024-01-21] VITALS: Ht 152.4 cm; Wt 81.7 kg
[~2024-01-21 10:58] MED LIST changes: +NAPR-1704 PO; +PROC-87 PO
[2024-01-21 11:39] VITALS: BP 123/70; PULSE 74; RESP 19; TEMP 98.5; O2SAT 100
[2024-01-21] MEDS ORDERED: AMOX1TAB8 PO (12:08)
[2024-01-21] MEDS: KETOROLAC 30 MG/ML VIAL IM ONE (12:08)
[2024-01-21] MEDS ORDERED: IBUP-2213 PO (12:08)
[2024-01-21 12:17] VITALS: BP 123/70; PULSE 74; RESP 19; TEMP 98.5; O2SAT 100
== END 2024-01-21 12:17 | disposition home or self-care (01) ==
LOC: MED 10:58
DX: K04.7 Periapical abscess without sinus (principal); K00.6 Disturbances in tooth eruption; E11.9 Type 2 diabetes mellitus without complications; I10 Essential (primary) hypertension; E78.5 Hyperlipidemia, unspecified; Z79.1 Long term (current) use of non-steroidal anti-inflammatories (NSAID); Z79.2 Long term (current) use of antibiotics; Z79.899 Other long term (current) drug therapy
CPT/HCPCS: 96372; 99283; J1885